=== PATIENT | female | born 1990 | race Two or more races ===

== ENCOUNTER 2018-01-26 23:17 | Emergency (ER) | payer MEDICAID, OTHER ==
[~2018-01-26] VITALS: Ht 157.5 cm; Wt 47.6 kg
[2018-01-26 23:30] VITALS: BP 87/54
== END 2018-01-27 02:10 | disposition left against medical advice (07) ==
LOC: ER 23:17
DX: S80.861A Insect bite (nonvenomous), right lower leg, initial encounter (principal); Z53.21 Procedure and treatment not carried out due to patient leaving prior to being seen by health care provider; W57.XXXA Bitten or stung by nonvenomous insect and other nonvenomous arthropods, initial encounter; Y93.89 Activity, other specified; Y99.8 Other external cause status; Y92.89 Other specified places as the place of occurrence of the external cause

== ENCOUNTER 2018-01-28 00:01 | Emergency (ER) | payer MEDICAID ==
[~2018-01-28] VITALS: Ht 157.5 cm; Wt 47.6 kg
[2018-01-28 00:46] LABS: Basophils # (auto) 0.1 uL; Basophils % (auto) 0.7 % (0.0-2.0); Eosinophils # (auto) 0.2 uL; Eosinophils % (auto) 2.2 % (0.0-7.0); Hematocrit 35.4 % (36.0-46.0); Hemoglobin 11.8 g/dL (12.2-16.2); Lymphocytes # (auto) 3.2 uL; Lymphocytes % (auto) 39.7 % (10.0-50.0); Mean Corpuscular Hemoglobin 29.2 pg (28.0-32.0); Mean Corpuscular Hgb Conc. 33.2 g/dL (32.0-36.0); Mean Corpuscular Volume 87.8 fL (80.0-100.0); Monocytes # (auto) 0.4 uL; Monocytes % (auto) 5.5 % (0.0-12.0); Neutrophils # (auto) 4.2 uL; Neutrophils % (auto) 51.9 % (37.0-80.0); Platelet Count (auto) 217 10^3/uL (140-450); Red Blood Cells 4.03 10^6/uL (4.0-5.20); White Blood Cell 8.1 10^3/uL (4.4-10.8)
[2018-01-28 01:03] LABS: BUN/Creatinine Ratio 38.4; Calcium 8.7 mg/dL (8.5-10.1); Potassium 3.4 mmol/L (3.5-5.1)
[2018-01-28 01:22] LABS: Urine Bacteria MOD /hpf (None Seen); Urine Blood 2+ /uL (Negative); Urine Mucus MODERATE (None Seen); Urine Specific Gravity 1.036 (1.001-1.035); Urine WBC 14 /hpf (0 - 5)
[2018-01-28 03:29] VITALS: BP 137/75
[2018-01-28] MEDS ORDERED: HYDROcodone-ACET 10/325MG TAB PO ONE (04:15)
[2018-01-28] MEDS ORDERED: CLINDAMYCIN 600MG IV 50 ML IV ONE (04:15)
== END 2018-01-28 05:32 | disposition home or self-care (01) ==
LOC: ER 00:01
DX: L03.115 Cellulitis of right lower limb (principal); W57.XXXA Bitten or stung by nonvenomous insect and other nonvenomous arthropods, initial encounter; Y93.89 Activity, other specified; Y99.8 Other external cause status; Y92.89 Other specified places as the place of occurrence of the external cause
CPT/HCPCS: 36415; 80048; 81001; 81025; 85025; 87040; 96365; 99284; J3490